=== PATIENT | female | born 1995 | race Caucasian/White ===

== ENCOUNTER 2019-08-15 13:50 | Inpatient (IN) | payer OTHER, MEDICAID, SELFPAY | END 2019-08-18 19:49 | disposition home or self-care (01) | DRG 807 | LOC: OBGYN 08-18 09:26 | PROVIDERS: Admitting Provider Family Medicine; Family Provider Family Medicine; PCP Nurse Practitioner; Referring Provider Family Medicine; Visit Provider Family Medicine | DX: O99.824 Streptococcus B carrier state complicating childbirth (principal); Z37.0 Single live birth; Z3A.37 37 weeks gestation of pregnancy; O14.04 Mild to moderate pre-eclampsia, complicating childbirth; O70.0 First degree perineal laceration during delivery ==

== ENCOUNTER → 2021-04-14 11:41 | Outpatient (BNVA) | payer OTHER, MEDICAID, SELFPAY | PROVIDERS: Family Provider Family Medicine; PCP Nurse Practitioner Family; Visit Provider Nurse Practitioner Family | DX: E66.9 Obesity, unspecified (principal); R53.83 Other fatigue; Z71.89 Other specified counseling | CPT/HCPCS: 80053; 82607; 82728; 83036; 83550; 84443; 87491; 87591; 87661 ==